=== PATIENT | male | born 1985 | race African-American/Black ===

== ENCOUNTER → 2016-11-16 | Outpatient (CLI) | payer OTHER ==
--- NOTE | 2016-11-17 01:52 | REP ---
Clinical: Pain times 1 month . Technique: AP, lateral, bilateral oblique views right wrist . Findings: The carpal bones, surrounding osseous structures, soft tissues, and joint spaces are normal. There is no evidence for acute fracture or dislocation. No subcutaneous emphysema or radiodense foreign body. Impression: Normal wrist series. No acute fracture or dislocation Signed by Chuck Sanchez MD 11/17/2016 01:44 A
== END ==
LOC: M RAD 09:09
PROVIDERS: ATTEND Surgery
DX: M25.531 Pain in right wrist (principal)